=== PATIENT | female | born 1965 | race African-American/Black ===

== ENCOUNTER 2023-06-26 08:57 | Observation (INO) | payer OTHER ==
[~2023-06-26] VITALS: Ht 152.4 cm; Wt 96.6 kg
[2023-06-26] VITALS (7 sets, daily range): BP systolic 115–152; BP diastolic 51–83; PULSE 55–68; RESP 18; TEMP 97.4–98; O2SAT 98
[2023-06-26] MEDS ORDERED: PLAVIX PO STA (09:28)
[2023-06-26] MEDS ORDERED: ASPIRIN ONE (09:28)
[2023-06-26] MEDS ORDERED: PLAVIX ONE (09:28)
[2023-06-26] MEDS ORDERED: ASPIRIN PO STA (09:28)
[2023-06-26 09:55] LABS: EOSINOPHIL # 0.3 10^3/uL (0.0-0.2); EOSINOPHIL % 3.6 % (0.0-5.0); HEMATOCRIT(ML) 32.9 % (36.0-46.0); HEMOGLOBIN 10.5 g/dL (12.0-15.0); LYMPHOCYTES # 1.96 10^3/uL1 (1.0-4.8); LYMPHOCYTES % 28.1 % (24.0-44.0); MEAN CORP HGB CONCENTRATION 31.9 g/dL (33-36.5); MEAN CORP VOLUME 78.3 fL (78-100); MONOCYTES # 0.6 10^3/uL (0.3-0.8); MONOCYTES % 8.9 % (5.0-12.0); NEUTROPHIL # 4.1 10^3/uL (1.8-7.7); NEUTROPHILS % 59.3 % (41.0-85.0); PLATELET COUNT 245 10^3/uL (150-400); RED CELL DISTRIBUTION WIDTH 15.4 % (11.5-14.5)
[2023-06-26 09:58] LABS: +ADD MANUAL DIFF(NO CHRG) NO
[2023-06-26 10:06] LABS: PROTHROMBIN PROTIME 10.8 SEC (9.7-11.6)
[2023-06-26 10:12] LABS: ANION GAP 12.7; CARBON DIOXIDE 27.5 mmol/L (20.0-32); CREATININE SERUM 0.74 mg/dL (0.59-1.40); POTASSIUM 4.2 mmol/L (3.6-5.2)
[2023-06-26 10:13] LABS: ALBUMIN/GLOBULIN RATIO 0.81; BUN/CREATININE RATIO 18.91 (10.0-20.0); EST GFR, NON-AA 80.6 (>/=60)
[2023-06-26] MEDS ORDERED: NICOTINE 21 MGPATCH TD ONE (16:36)
[2023-06-26] MEDS ORDERED: TYLENOL PO PRN (17:00)
[2023-06-26] MEDS ORDERED: ATOR40TA PO (19:27)
[2023-06-26] MEDS ORDERED: ASPI-667 PO (19:27)
[2023-06-27] MEDS ORDERED: NICOTINE 14MG PATCH TD SCH (09:00)
== END 2023-06-26 20:40 | disposition home or self-care (01) ==
LOC: ER 08:57 → EDBD 08:57 → MS 10:32
PROVIDERS: ADMIT Surgery; ATTEND Surgery
DX: G45.9 Transient cerebral ischemic attack, unspecified (principal); M10.9 Gout, unspecified; R51.9 Headache, unspecified; R53.1 Weakness; Z90.710 Acquired absence of both cervix and uterus; Z79.82 Long term (current) use of aspirin
CPT/HCPCS: 99291; 97165; 97535; 70551; 71045; 70450; 70498; 70496; 80053; 85025; 82948; 36415; 84484; 82550; 85610; 85730; 93005; 93306; G0378 ×10; A9150; Q9965; J8499